=== PATIENT | male | born 1995 | race Caucasian/White ===

== ENCOUNTER 2022-03-02 21:25 | Emergency (ER) | payer OTHER ==
[2022-03-02] MEDS ORDERED: Sodium Chloride 0.9% 1,000 ML IV SCH (21:45)
[2022-03-02] MEDS ORDERED: Lactated Ringers 1,000 ML IV STA ×2 (22:12→22:13)
[2022-03-02 22:56] LABS: BLOOD UREA NITROGEN,BUN 15 mg/dL (7.0-18.0); CARBON DIOXIDE,CO2 26.1 mmol/L (21.0-32.0); CHLORIDE,CL 102 mmol/L (98-107); GLUCOSE RANDOM 132 mg/dL (74-106); SODIUM,NA 139 mmol/L (136-148)
[2022-03-03 02:05] LABS: BLOOD UREA NITROGEN,BUN 13 mg/dL (7.0-18.0); CARBON DIOXIDE,CO2 28.9 mmol/L (21.0-32.0); CHLORIDE,CL 105 mmol/L (98-107); GLUCOSE RANDOM 119 mg/dL (74-106); POTASSIUM,K 3.5 mmol/L (3.5-5.1); SODIUM,NA 143 mmol/L (136-148)
[2022-03-03] MEDS ORDERED: Lactated Ringers 1,000 ML IV STA (04:42)
[2022-03-03 05:29] LABS: BLOOD UREA NITROGEN,BUN 12 mg/dL (7.0-18.0); CHLORIDE,CL 105 mmol/L (98-107); GLUCOSE RANDOM 112 mg/dL (74-106); POTASSIUM,K 3.7 mmol/L (3.5-5.1); SODIUM,NA 142 mmol/L (136-148)
[2022-03-03] MEDS ORDERED: Acetaminophen 500 MG Tab PO ONE (06:34)
== END 2022-03-03 08:45 ==
LOC: MW.ED 21:25
DX: T75.4XXA Electrocution, initial encounter (principal); T23.342A Burn of third degree of multiple left fingers (nail), including thumb, initial encounter; T79.6XXA Traumatic ischemia of muscle, initial encounter; Z88.1 Allergy status to other antibiotic agents; Z88.0 Allergy status to penicillin; Z88.2 Allergy status to sulfonamides; Z20.822 Contact with and (suspected) exposure to COVID-19; W86.1XXA Exposure to industrial wiring, appliances and electrical machinery, initial encounter
CPT/HCPCS: 36415; 71045; 80048; 80053; 81003; 82550; 83605; 84484; 85025; 87635; 93005; 99291; 99292; A9270; J7030; J7120; U0002